=== PATIENT | female | born 1995 | race Caucasian/White ===

== ENCOUNTER 2019-04-25 01:47 | Emergency (ER) | payer OTHER, SELFPAY ==
[2019-04-25 02:49] LABS: Barbiturates NEGATIVE (NEGATIVE); Benzodiazepines NEGATIVE (NEGATIVE); Cocaine NEGATIVE (NEGATIVE); METHAMPHETAM NEGATIVE (NEGATIVE); Methadone NEGATIVE (NEGATIVE); Opiates NEGATIVE (NEGATIVE); Phencyclidine NEGATIVE (NEGATIVE); THC Cannibis NEGATIVE (NEGATIVE)
[2019-04-25 02:59] LABS: Absolute Lymphocytes (CBC) 3.2 K/uL (0.7-4.9); Hematocrit 40.7 % (36.0-45.0); Lymphocytes % 30.6 % (15.3-44.8); MPV 8.9 fL (7.6-11.3); RBC Red Blood Cell Count 4.47 M/uL (3.86-4.86)
[2019-04-25 03:05] LABS: Protime INR 0.98
[2019-04-25 03:21] LABS: ALT/SGPT 26 U/L (12-78); AST/SGOT 18 U/L (15-37); Alkaline Phosphatase 95 U/L (45-117); BUN Blood Urea Nitrogen 9 mg/dL (7-18); Bicarbonate 23 mmol/L (21-32); Bilirubin Direct 0.1 mg/dL (0-0.2); Bilirubin Total 0.4 mg/dL (0.2-1.0); Glucose Level 91 mg/dL (74-106); Potassium 3.6 mmol/L (3.5-5.1); Protein, Total 8.2 g/dL (6.4-8.2); Sodium Level 137 mmol/L (136-145)
[2019-04-25 03:46] LABS: Urine Blood NEGATIVE (NEG); Urine Glucose NEGATIVE (NEG); Urine Protein NEGATIVE (NEG); Urine Specific Gravity <1.005 (1.005-1.030)
--- NOTE | 2019-04-25 06:55 | EKG ---
Test Date: 2019-04-25 Test Time: 02:24:56 Filler Shredder Helper: KELSIE MEASUREMENT RESULTS: Intervals: Rate: 94 IA: 162 QRSD: 78 QT: 362 QTc: 452 Andes: P: 20 IA: 162 QRS: 45 T: 34 INTERPRETIVE STATEMENTS: Normal sinus rhythm Normal ECG Compared to ECG 1995 21:01:00 First degree AV block no longer present Electronically Signed On 04-25-19 06:54:34 CDT by Vladislav Acosta
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
--- NOTE | 2019-04-25 08:34 | EDPHYS ---
Physician Documentation [facility] Name: Rosa Phoenix Age: 23 yrs Sex: Female : 1995 Arrival Date: 04/25/2019 Time: 01:47 Bed 16 Private MD: ED Physician Gordy Tolbert HPI: 04/24 07:27 This 23 yrs old Female presents to ER via Ambulatory with complaints of rn Suicidal Ideation. 07:27 The patient presents to the emergency department with suicide ideation, and the patient rn has a plan. Onset: The symptoms/episode began/occurred at an unknown time. Severity of symptoms: At their worst the symptoms were moderate in the emergency department the symptoms are unchanged. The patient has experienced similar episodes in the past. Reports suicidal ideation, unclear onset, worse lately, alcohol helps, reports plan either to take ibuprofen/cut or shoot herself. Hospitalized before for suicidal ideation. Denies attempt last night. . SPECIAL NEEDS NANNY: 02:05 LMP 04/2019 bb Historical: - Allergies: 02:05 No Known Allergies; bb - Home Meds: 02:05 None [Active]; bb - PMHx: 02:05 psych problems; bb - PSHx: 02:05 None; bb - Immunization history:: Adult Immunizations up to date. - Social history:: Smoking status: Reported history of juuling and/or vaping. Patient uses alcohol, patient/guardian reports chronic longstanding heavy alcohol consumption. Patient/guardian denies using street drugs. - Family history:: not pertinent. - Hospitalizations: : No recent hospitalization is reported. ROS: 07:27 Constitutional: Negative for fever, chills, and weight loss, Eyes: Negative for injury, rn pain, redness, and discharge, Neck: Negative for injury, pain, and swelling, Cardiovascular: Negative for chest pain, palpitations, and edema, Respiratory: Negative for shortness of breath, cough, wheezing, and pleuritic chest pain, Abdomen/GI: Negative for abdominal pain, nausea, vomiting, diarrhea, and constipation, MS/Extremity: Negative for injury and deformity, Skin: Negative for injury, rash, and discoloration, Neuro: Negative for headache, weakness, numbness, tingling, and seizure. Exam: 07:27 Constitutional: This is a well developed, well nourished patient who is awake, alert, rn and in no acute distress. Head/Face: Normocephalic, atraumatic. Eyes: Pupils equal round and reactive to light, extra-ocular motions intact. Lids and lashes normal. Conjunctiva and sclera are non-icteric and not injected. Cornea within normal limits. Periorbital areas with no swelling, redness, or edema. ENT: MMM Cardiovascular: Regular rate and rhythm. No pulse deficits. Respiratory: No increased work of breathing, no retractions or nasal flaring. Abdomen/GI: Soft, non-tender MS/ Extremity: Pulses equal, no cyanosis. Neurovascular intact. Full, normal range of motion. Equal circumference. Neuro: Awake and alert, GCS 15, oriented to person, place, time, and situation. Cranial nerves II-XII grossly intact. Motor strength 5/5 in all extremities. Sensory grossly intact. Cerebellar exam normal. Vital Signs: 02:01 BP 117 / 80; Pulse 100; Resp 16 S; Temp 97.5(TE); Pulse Ox 99% on R/A; Weight 90.72 kg bb (R); Height 5 ft. 2 in. (157.48 cm) (R); Pain 0/10; 14:00 BP 119 / 81; Pulse 101; Resp 16; Pulse Ox 100% ; ms 21:53 BP 121 / 78; Pulse 83; Resp 16; Temp 98.4(O); Pulse Ox 99% on R/A; mt 02:01 Body Mass Index 36.58 (90.72 kg, 157.48 cm) bb MDM: 02:06 Patient medically screened. tw4 08:31 Differential diagnosis: depression, suicidal ideation. Data reviewed: vital signs, rn nurses notes, lab test result(s), EKG, and as a result, I will admit patient. Counseling: I had a detailed discussion with the patient and/or guardian regarding: the historical points, exam findings, and any diagnostic results supporting the discharge/admit diagnosis, lab results, the need to transfer to another facility, [facility] does not immediately have the required specialist. ED course: Pt still endorsing suicidal ideations, now sober, normal vitals and medically cleared, has more than one plan, initiating transfer to psychiatric facility. . 18:08 ED course: Pt now reports feels better, denies current suicidal ideation, given this is rn change from previous report, decision made to call out [facility] mental health again for reeval. . 04/24 02:04 Order name: Acetaminophen; Complete Time: 06:34 [facility] 04/24 06:34 Interpretation: Within normal limits: ACETA < 2.0. 04/24 02:04 Order name: Basic Metabolic Panel; Complete Time: 06:34 04/24 06:35 Interpretation: Within normal limits. 04/24 02:04 Order name: CBC with Diff; Complete Time: 06:34 04/24 06:35 Interpretation: Within normal limits. 04/24 02:04 Order name: ETOH Level; Complete Time: 06:34 [facility] 04/24 06:34 Interpretation: Abnormal: ETOH 162. 04/24 02:04 Order name: Hepatic Function; Complete Time: 06:34 [facility] 04/24 06:34 Interpretation: Normal except: GLOB 4.2; A/G 1.0. 04/24 02:04 Order name: PT-INR; Complete Time: 06:34 04/24 06:35 Interpretation: Within normal limits: PT 11.6. 04/24 02:04 Order name: Ptt, Activated; Complete Time: 06:34 04/24 06:35 Interpretation: Within normal limits: PTT 28.5. 04/24 02:04 Order name: Salicylate; Complete Time: 06:34 04/24 06:35 Interpretation: Within normal limits: BISHOP < 1.7. 04/24 02:04 Order name: Urine Drug Screen; Complete Time: 06:34 04/24 06:35 Interpretation: Within normal limits. 04/24 02:25 Order name: Urine Dipstick--Ancillary (enter results); Complete Time: 06:34 04/24 02:25 Order name: Test, Serum; Complete Time: 06:34 04/24 06:35 Interpretation: Within normal limits. 04/24 05:26 Order name: ETOH Level; Complete Time: 06:34 04/24 06:35 Interpretation: Abnormal: ETOH 106. 04/24 02:04 Order name: EKG; Complete Time: 02:06 04/24 02:04 Order name: EKG - Nurse/Tech; Complete Time: 02:32 tw4 04/24 02:04 Order name: IV Saline Lock; Complete Time: 07:14 tw4 04/24 02:04 Order name: Labs collected and sent; Complete Time: 07:14 tw4 04/24 02:04 Order name: Urine Dipstick-Ancillary (obtain specimen); Complete Time: 02:32 tw4 04/24 07:39 Order name: Diet Finger Food; Complete Time: 07:41 bd 04/24 11:54 Order name: Diet Finger Food; Complete Time: 11:54 em1 04/24 15:38 Order name: Diet Finger Food; Complete Time: 15:38 bd 04/24 18:35 Order name: Diet Finger Food; Complete Time: 18:35 ms EC:35 Rate is 94 beats/min. Rhythm is regular. QRS [place] is Normal. [place] interval is normal. QRS tw4 interval is normal. QT interval is normal. No Q waves. T waves are Normal. No ST changes noted. Clinical impression: Normal ECG. Interpreted by me. Reviewed by me. Administered Medications: 11:24 Drug: Valium 2 mg Route: PO; em 12:30 Follow up: Response: No adverse reaction; Marked relief of symptoms em 11:30 Drug: Nicoderm CQ 21 mg/24 hr 21 mg {Note: applied to left upper arm.} Route: em Transdermal; Site: affected area; 12:30 Follow up: Response: No adverse reaction em Disposition: 04/25/19 22:21 Discharged to Home. Impression: Adjustment disorder with depressed mood. - Condition is Stable. - Discharge Instructions: Adjustment Disorder, Adult, Helping Someone Who is Suicidal, Major Depressive Disorder. - Medication Reconciliation Form, Thank You Letter, Antibiotic Education, Prescription Opioid Use form. - Follow up: Private Physician; When: Upon discharge from the Emergency Department; Reason: Recheck today's complaints, Continuance of care, Re-evaluation by your physician. - Problem is new. - Symptoms have improved. Signatures: Dispatcher [employer] Drake James RN RN em Ballard, Brenda, RN RN bb Nieto, Roman, MD MD rn Habalo, Winsy wh Wadley, Terrence, MD MD tw4 Corrections: (The following items were deleted from the chart) 07:33 07:27 Constitutional: This is a well developed, well nourished patient who is awake, rn alert, and in no acute distress. Head/Face: Normocephalic, atraumatic. Eyes: Pupils equal round and reactive to light, extra-ocular motions intact. Lids and lashes normal. Conjunctiva and sclera are non-icteric and not injected. Cornea within normal limits. Periorbital areas with no swelling, redness, or edema. ENT: MMM Cardiovascular: Regular rate and rhythm. No pulse deficits. Respiratory: No increased work of breathing, no retractions or nasal flaring. Abdomen/GI: Soft, non-tender MS/ Extremity: Pulses equal, no cyanosis. Neurovascular intact. Full, normal range of motion. Equal circumference. Neuro: Awake and alert, GCS 15, oriented to person, place, time, and situation. Cranial nerves II-XII grossly intact. Motor strength 5/5 in all extremities. Sensory grossly intact. Cerebellar exam normal. Normal gait. rn 22:18 08:32 04/25/2019 08:32 Transfer ordered to [facility]. Diagnosis is Suicidal tw4 ideations. Reason for transfer: Higher level of care. Accepting physician is . Condition is Stable. Problem is an ongoing problem. Symptoms are unchanged. rn 22:32 22:21 04/25/2019 22:21 Discharged to Home. Impression: Adjustment disorder with wh depressed mood. Condition is Stable. Forms are Medication Reconciliation Form, Thank You Letter, Antibiotic Education, Prescription Opioid Use. Follow up: Private Physician; When: Upon discharge from the Emergency Department; Reason: Recheck today's complaints, Continuance of care, Re-evaluation by your physician. Problem is new. Symptoms have improved. tw4
[2019-04-25] MEDS ORDERED: DIAZEPAM 2 MG TABLET ONE (11:20)
[2019-04-25] MEDS ORDERED: NICOTINE 21 MG/PAT TD ONE (11:31)
[2019-04-25 22:41] VITALS: BP 121/78; TEMP 98.4; O2SAT 99
== END 2019-04-25 22:32 | disposition home or self-care (01) ==
LOC: ER 01:47
DX: F43.21 Adjustment disorder with depressed mood (principal)
CPT/HCPCS: 36415; 80048; 80076; 80307; 80320; 80329; 81003; 84703; 85025; 85610; 85730; 93005; 99285

== ENCOUNTER 2022-03-19 23:35 | Emergency (ER) | payer SELFPAY ==
--- OUTSIDE RECORDS SUMMARY | 2022-03-19 23:38 | XMS REPORT | Continuity of Care Document ---
:1995 Author Organization [facility] t Address [address] [place] [address] Dr. Ayala [address] [place] [id number] Care Team Providers Name Role Phone Unavailable Unavailable Unavailable Problems This patient has no known problems. Allergies, Adverse Reactions, Alerts This patient has no known allergies or adverse reactions. Medications This patient has no known medications. Procedures This patient has no known procedures. Results This patient has no known results.
[2022-03-20] MEDS ORDERED: KETOROLAC 30 MG/ML INJ ONE (00:03)
[2022-03-20] MEDS ORDERED: NA CHLORIDE 0.9% 1,000 ML ONE (00:03)
[2022-03-20 00:22] LABS: Urine Blood Trace-intact (Negative); Urine Glucose Negative (Negative); Urine Protein Negative (Negative); Urine Specific Gravity <=1.005 (1.005-1.030)
[2022-03-20 00:31] LABS: Urine Specific Gravity/Preg 1.005 (1.005-1.030)
[2022-03-20 00:36] LABS: Absolute Lymphocytes (CBC) 2.5 K/uL (0.7-4.9); Lymphocytes % 24.8 % (15.3-44.8); MCV 79.7 fL (80-100); MPV 8.7 fL (7.6-11.3); RBC Red Blood Cell Count 4.39 M/uL (3.86-4.86)
[2022-03-20 00:49] LABS: Albumin 3.7 g/dL (3.4-5.0); Bilirubin Total 0.3 mg/dL (0.2-1.0); Potassium 3.9 mmol/L (3.5-5.1); Protein, Total 7.8 g/dL (6.4-8.2)
--- NOTE | 2022-03-20 01:23 | ER ---
Nurse's Notes [facility] Name: Rosa Phoenix Age: 26 yrs Sex: Female : 1995 Arrival Date: 03/19/2022 Time: 23:38 Bed 18 Private MD: Diagnosis: Lower abdominal pain, unspecified Presentation: 03/19 23:44 Chief complaint: Patient states: "I have pain in my right lower side. It started last tw5 week, it was in my right side and then it moved my back. It slowly went away , but today it came in the front.". Ebola Screen: Patient negative for fever greater than or equal to 101.5 degrees Fahrenheit, and additional compatible Ebola Virus Disease symptoms Patient denies exposure to infectious person. Patient denies travel to an Ebola-affected area in the 21 days before illness onset. Risk Assessment: Do you want to hurt yourself or someone else? Patient reports no desire to harm self or others. Onset of symptoms is unknown. 23:44 Method Of Arrival: Ambulatory tw5 23:44 Acuity: MOOKIE 3 tw5 23:46 Coronavirus screen: Vaccine status: Patient reports receiving the 2nd dose of the covid tw5 vaccine. [employer]. Initial Sepsis Screen: Does the patient meet any 2 criteria? HR > 90 bpm. Does the patient have a suspected source of infection? Yes: Acute abdominal pain. Triage Assessment: 23:49 General: Appears uncomfortable, Behavior is calm, cooperative, appropriate for age. tw5 Pain: Complains of pain in right lower quadrant Pain currently is 4 out of 10 on a pain scale. DIFFERENTIAL TESTER: 23:44 LMP N/A - Irregular menses tw5 Historical: - Allergies: 23:49 No Known Allergies; tw5 - Home Meds: 23:49 None [Active]; tw5 - PMHx: 23:49 Depressive disorder; Panic attack; tw5 - PSHx: 23:49 None; tw - Immunization history:: Flu vaccine is not up to date. - Social history:: Smoking status: Patient/guardian denies using tobacco, Stopped _ months ago 6. Screenin/09 00:11 [facility] ED Fall Risk Assessment (Adult) History of falling in the last 3 months, aa9 including since admission No falls in past 3 months (0 pts) Confusion or Disorientation No (0 pts) Intoxicated or Sedated No (0 pts) Impaired Gait No (0 pts) Mobility Assist Device Used No (0 pt) Altered Elimination No (0 pt) Score/Fall Risk Level 0 - 2 = Low Risk Oriented to surroundings, Maintained a safe environment. Abuse screen: Denies threats or abuse. Denies injuries from another. Nutritional screening: No deficits noted. Tuberculosis screening: No symptoms or risk factors identified. Assessment: 00:10 General: Appears in no apparent distress. comfortable, obese, Behavior is calm, aa9 cooperative, appropriate for age. Pain: Complains of pain in right lower quadrant Pain currently is 2 out of 10 on a pain scale. Neuro: Level of Consciousness is awake, alert, obeys commands, Oriented to person, place, time, situation. Cardiovascular: Patient's skin is warm and dry. Respiratory: Airway is patent Respiratory effort is even, unlabored. GI: Patient currently denies diarrhea, nausea, vomiting. : Denies burning with urination. Derm: Skin is intact, is healthy with good turgor, Skin is dry. 01:43 Reassessment: Patient appears in no apparent distress at this time. Patient is alert, aa9 oriented x 3, equal unlabored respirations, skin warm/dry/pink. Patient denies pain at this time. Patient states feeling better. Vital Signs: 03/19 23:44 Weight 90.72 kg; Height 5 ft. 2 in. (157.48 cm); Pain 2/10; tw5 23:47 BP 130 / 78; Pulse 97; Resp 18; Temp 98.8; Pulse Ox 100% on R/A; tw5 23:44 Body Mass Index 36.58 (90.72 kg, 157.48 cm) tw5 ED Course: 23:38 Patient arrived in ED. jj6 23:43 [facility] Donal[facility]C [facility] kb 23:43 Marlon Kapadia MD is Attending Physician. kb 23:44 Arm band placed on. tw5 23:46 Triage completed. tw5 23:55 Sis Lopez, MARY is Primary Nurse. aa9 03/20 00:09 CBC with Diff Sent. : CMP Sent. 00:09 Lipase Sent. aa 00:10 Inserted saline lock: 20 gauge in right antecubital area, using aseptic technique. aa9 Blood collected. 00:11 Patient has correct armband on for positive identification. Placed in gown. Call light aa9 in reach. 00:51 CT Abd/Pelvis - IV Contrast Only In Process Unspecified. EDMS 01:42 No provider procedures requiring assistance completed. IV discontinued, intact, aa9 bleeding controlled, No redness/swelling at site. Pressure dressing applied. Administered Medications: 00:10 Drug: NS 0.9% 1000 ml Route: IV; Rate: 1 bolus; Site: right antecubital; aa9 00:10 Not Given (Patient Refused): TORadol - (ketorolac) 15 mg IVP once aa9 Medication: 00:11 VIS not applicable for this client. aa9 Outcome: 01:22 Discharge ordered by . kb 01:42 Discharged to home ambulatory. aa9 01:42 Condition: stable 01:42 Discharge instructions given to patient, Instructed on discharge instructions, follow up and referral plans. Demonstrated understanding of instructions, follow-up care. 01:43 Patient left the ED. aa9 Signatures: Dispatcher [employer] EDMS Michelle Donaldson, POST ADOPTION COORDINATOR-C POST ADOPTION COORDINATOR-Francisca Montoya tw5 Mindy Sigala jj6 Sis Lopez, RN RN aa9
--- NOTE | 2022-03-20 01:23 | EDPHYS ---
Physician Documentation [facility] Name: Rosa Phoenix Age: 26 yrs Sex: Female : 1995 Arrival Date: 03/19/2022 Time: 23:38 Bed 18 Private MD: AURELIANO Physician Marlon Kapadia HPI: 03/20 00:15 This 26 yrs old Female presents to ER via Ambulatory with complaints of RT SIDE ABD kb PAIN. 00:15 The patient presents with abdominal pain right lower quadrant. Onset: The kb symptoms/episode began/occurred last week. The symptoms do not radiate. Associated signs and symptoms: none. The symptoms are described as intermittent. Modifying factors: The symptoms are alleviated by nothing, the symptoms are aggravated by nothing. Severity of pain: At its worst the pain was moderate in the emergency department the pain is unchanged. The patient has not experienced similar symptoms in the past. The patient has not recently seen a physician. Pt reports right lower abd pain that started last week, went away and returned today. Denies other symptoms. States she is concerned about appendicitis. 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 - Social history:: Smoking status: Patient/guardian denies using tobacco, Stopped _ months ago 6. ROS: 03/20 00:14 Constitutional: Negative for fever, chills, and weight loss. kb Abdomen/GI: Positive for abdominal pain, Negative for nausea, vomiting, and diarrhea. All other systems are negative. Exam: 00:14 Constitutional: This is a well developed, well nourished patient who is awake, alert, kb and in no acute distress. Head/Face: Normocephalic, atraumatic. ENT: Moist Mucous membranes Cardiovascular: Regular rate and rhythm with a normal S1 and S2. No gallops, murmurs, or rubs. No pulse deficits. Respiratory: Respirations even and unlabored. No increased work of breathing. Talking in full sentences Skin: Warm, dry with normal turgor. Normal color. MS/ Extremity: Pulses equal, no cyanosis. Neurovascular intact. Full, normal range of motion. Neuro: Awake and alert, GCS 15, oriented to person, place, time, and situation. Moves all extremities. Normal gait. Psych: Awake, alert, with orientation to person, place and time. Behavior, mood, and affect are within normal limits. 00:14 Abdomen/GI: Inspection: abdomen appears normal, Bowel sounds: normal, Palpation: soft, in all quadrants, mild abdominal tenderness, in the right lower quadrant. Vital Signs: 03/19 23:44 Weight 90.72 kg; Height 5 ft. 2 in. (157.48 cm); Pain 2/10; tw5 23:47 BP 130 / 78; Pulse 97; Resp 18; Temp 98.8; Pulse Ox 100% on R/A; tw5 23:44 Body Mass Index 36.58 (90.72 kg, 157.48 cm) tw5 MDM: 23:43 Patient medically screened. kb 03/20 00:14 Data reviewed: vital signs, nurses notes. kb 00:19 Differential diagnosis: appendicitis, non-specific abd pain, Ureterolithiasis, urinary kb tract infection, ovarian cyst. 01:21 Counseling: I had a detailed discussion with the patient and/or guardian regarding: the kb historical points, exam findings, and any diagnostic results supporting the discharge/admit diagnosis, lab results, radiology results, the need for outpatient follow up, a family practitioner, to return to the emergency department if symptoms worsen or persist or if there are any questions or concerns that arise at home. 03/19 23:47 Order name: CBC with Diff; Complete Time: 00:42 kb 03/19 23:47 Order name: CMP; Complete Time: 00:57 kb 03/19 23:47 Order name: Lipase; Complete Time: 00:57 kb 03/20 00:22 Order name: Urine Dipstick-Ancillary; Complete Time: 00:25 EDMS 03/20 00:24 Order name: Urine --Ancillary (enter results); Complete Time: 00:36 ds4 03/20 01:06 Order name: CREATININE WHOLE BLOOD; Complete Time: 01:08 EDMS 03/19 23:47 Order name: CT Abd/Pelvis - IV Contrast Only kb 03/19 23:47 Order name: IV Saline Lock; Complete Time: 00:09 kb 03/19 23:47 Order name: Labs collected and sent; Complete Time: 00:09 kb 03/19 23:47 Order name: Urine Dipstick-Ancillary (obtain specimen); Complete Time: 00:22 kb 03/19 23:47 Order name: Urine Test (obtain specimen); Complete Time: 00:22 kb Administered Medications: 00:10 Drug: NS 0.9% 1000 ml Route: IV; Rate: 1 bolus; Site: right antecubital; aa9 00:10 Not Given (Patient Refused): TORadol - (ketorolac) 15 mg IVP once aa9 Disposition Summary: 03/20/22 01:22 Discharge Ordered Location: Home kb Condition: Stable kb Diagnosis - Lower abdominal pain, unspecified kb Followup: kb - With: Emergency Department - When: As needed - Reason: Worsening of condition Followup: kb - With: Private Physician - When: 2 - 3 days - Reason: Recheck today's complaints, Continuance of care, Re-evaluation by your physician Discharge Instructions: - Discharge Summary Sheet kb - Abdominal Pain, Adult, [id number] kb Forms: - Medication Reconciliation Form kb - Thank You Letter kb - Antibiotic Education kb - Prescription Opioid Use kb Signatures: Dispatcher [employer] Michelle Teague, RHETT-C RHETT-Francisca Montoya tw5 Sis Lopez, RN RN aa9
[2022-03-20 02:10] VITALS: BP 130/78; TEMP 98.8; O2SAT 100
--- NOTE | 2022-03-20 15:38 | RAD REPORT ---
EXAM DESCRIPTION: CT - Abdomen Pelvis W Contrast - 03/20/2022 7:06 am CLINICAL HISTORY: The patient is 26 years old and is Female; ABD PAIN TECHNIQUE: Axial computed tomography images of the abdomen and pelvis with intravenous contrast. S agittal and coronal reformatted images were created and reviewed. This CT exam was performed using one or more of the following dose reduction techniques: automated exposure control, adjustment of t he mA and/or kV according to patient size, and/or use of iterative reconstruction technique. COMPARISON: No relevant prior studies available. FINDINGS: Lung bases: Unremarkable. No mass. No consolidation. ABDOMEN: Liver: Unremarkable. No mass. Gallbladder and bile ducts: Unremarkable. No calcified stones. No ductal dilation. Pancreas: Unremarkable. No mass. No ductal dilation. Spleen: Unremarkable. No splenomegaly. Adrenals: Unremarkable. No mass. Kidneys and ureters: Unremarkable. No solid mass. No hydronephrosis. Stomach and bowel: Unremarkable. No obstruction. No mucosal thickening. PELVIS: Appendix: No findings to suggest acute appendicitis. Bladder: Unremarkable. Reproductive: Unremarkable as visualized. ABDOMEN and PELVIS: Intraperitoneal space: Unremarkable. No free air. No significant fluid collection. Bones/joints: No acute fracture. No dislocation. Soft tissues: Unremarkable. Vasculature: Unremarkable. No abdominal aortic aneurysm. Lymph nodes: Unremarkable. No enlarged lymph nodes. IMPRESSION: No acute finding in the abdomen/pelvis. Electronically signed by: Onesimo Moore MD 03/20/2022 1:18 AM PYTHON ARCHITECT Due to temporary technical issues with the PACS/Fluency reporting system, reports are being signed by the in house radiologists without review as a courtesy to insure prompt reporting. The interpreting radiologist is fully responsible for the content of the report.
== END 2022-03-20 01:43 | disposition home or self-care (01) ==
LOC: ER 23:35
DX: R10.31 Right lower quadrant pain (principal)
CPT/HCPCS: 36415; 74177; 80053; 81003; 81025; 82565; 83690; 85025; 99284; Q9967

== ENCOUNTER 2023-12-07 14:18 | Emergency (ER) | payer SELFPAY ==
--- OUTSIDE RECORDS SUMMARY | 2023-12-07 14:28 | XMS REPORT | Continuity of Care Document ---
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
[2023-12-07 14:57] LABS: Absolute Basophils 0.1 K/uL (0-0.5); Absolute Eosinophils 0.4 K/uL (0-0.5); Absolute Lymphocytes (CBC) 1.9 K/uL (0.7-4.9); Absolute Monocytes 0.6 K/uL (0.1-1.3); Absolute Neutrophil 8.6 K/uL (1.8-8.0); Basophils % 0.9 % (0-1.3); Eosinophils % 3.7 % (0-4.4); Hematocrit 34.6 % (36.0-45.0); Hemoglobin 10.7 g/dL (12.0-15.0); Lymphocytes % 16.3 % (15.3-44.8); MCH 22.8 pg (27.0-35.0); MCV 73.7 fL (80-100); MPV 8.4 fL (7.6-11.3); Monocytes % 5.5 % (3.3-12.3); Neutrophils % 73.6 % (41.7-73.7); Platelets 326 thou/uL (152-406); RBC Red Blood Cell Count 4.69 M/uL (3.86-4.86); Red Cell Distribution Width 19.4 % (12.1-15.2)
[2023-12-07 15:15] LABS: Albumin 3.6 g/dL (3.4-5.0); Albumin/Globulin Ratio 0.8 (1.1-1.8); Bilirubin Total 0.4 mg/dL (0.2-1.0); Globulin 4.3 g/dL (2.3-3.5); Protein, Total 7.9 g/dL (6.4-8.2)
--- NOTE | 2023-12-07 16:49 | RAD REPORT ---
EXAMINATION: US FIRST TRIMESTER TRANSVAGINAL WITH DOPPLER CLINICAL INDICATION: with pelvic pain TECHNIQUE: Real-time obstetrical ultrasonography of the maternal pelvis and first trimester was performed transvaginally. Color and spectral Doppler evaluation of the ovaries was performed. COMPARISON: No prior exam. FINDINGS: The uterus measures 10 x 5 x 5 cm. The endometrial stripe measures 1.6 cm. Gestational sac is not seen. Within the cervical canal is a heterogeneous structure measuring 2.5 cm. Right ovary normal in size and echotexture Left ovary normal in size and echotexture Right and left adnexa unremarkable No significant free fluid IMPRESSION: 2.5 cm heterogeneous structure within the cervical canal. This may represent the remnants of an incom plete . Another consideration is that this is unrelated to the and represents a mass. It is possible that the patient has an early intrauterine in which the gestational sac is n ot seen secondary to the early gestation. This should all be correlated clinically and with serial beta-hCG levels. Follow-up endovaginal sono gram in one week recommended for reevaluation
[2023-12-07 17:27] LABS: Sqamous Epithelial None Seen /HPF (None Seen); Urine Bacteria None Seen /HPF (<20); Urine Culture Reflex Order REFLEXED; Urine Micro Reflex YN NO BILL MICROSCOPIC; Urine RBC >50 /HPF (None Seen)
--- NOTE | 2023-12-07 18:26 | EDPHYS ---
Physician Documentation [facility] Name: Rosa Phoenix Age: 28 yrs Sex: Female : 1995 Arrival Date: 12/07/2023 Time: 14:18 Bed 12 Private MD: ED Physician Magen Iniguez HPI: 12/06 14:40 This 28 yrs old Female presents to ER via Ambulatory with complaints of Abdominal ms3 Cramping. 14:40 28-year-old female past medical history of depression, panic attack, psych problem ms3 presents to the emergency department for lower abdominal cramping that has been ongoing for 2 weeks. Patient states cramping became worse on Thursday and is currently rated 6/10. Patient states she is currently on her cycle and does have irregular cycles. Patient endorses nausea. Patient denies vomiting, diarrhea, constipation, urinary symptoms. 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 - Infectious Disease History:: Denies. - Social history:: Smoking status: Patient/guardian denies using tobacco. ROS: 14:40 Constitutional: Negative for fever, and chills. Cardiovascular: Negative for chest ms3 pain, and palpitations. Respiratory: Negative for shortness of breath, cough, wheezing, and pleuritic chest pain, 14:40 : Negative for injury, bleeding, discharge, and swelling, MS/Extremity: Negative for injury and deformity, 14:40 Abdomen/GI: Positive for abdominal pain, nausea, Negative for vomiting, diarrhea, Exam: 14:40 Constitutional: This is a well developed, well nourished patient who is awake, alert, ms3 and in no acute distress. Chest/axilla: Normal chest wall appearance and motion. Nontender with no deformity. Cardiovascular: Regular rate and rhythm with a normal S1 and S2. No gallops, murmurs, or rubs. Normal PMI, no JVD. No pulse deficits. Respiratory: Lungs have equal breath sounds bilaterally, clear to auscultation and percussion. No rales, rhonchi or wheezes noted. No increased work of breathing, no retractions or nasal flaring. 14:40 Skin: Warm, dry with normal turgor. Normal color with no rashes, no lesions, and no evidence of cellulitis. 14:40 Abdomen/GI: Inspection: obese Bowel sounds: normal, Palpation: mild abdominal tenderness, in the right lower quadrant, Vital Signs: 14:32 BP 132 / 87; Pulse 86; Resp 17; Temp 98.1(O); Pulse Ox 98% on R/A; Weight 104.33 kg; cm10 Height 5 ft. 3 in. ; Pain 6/10; 17:03 BP 116 / 86; Pulse 96; Resp 18; Pulse Ox 100% on R/A; Pain 0/10; tl4 17:50 BP 125 / 74; Pulse 102; Resp 18; Pulse Ox 100% on R/A; Pain 0/10; tl4 18:43 BP 119 / 92; Pulse 103; Resp 19; Temp 97.8(O); Pulse Ox 99% on R/A; tl4 14:32 Body Mass Index 40.74 (104.33 kg, 160.02 cm) cm10 14:32 Pain Scale: Adult cm10 17:03 Pain Scale: Adult tl4 17:50 Pain Scale: Adult tl4 MDM: 14:37 Medical Screening Exam initiated ms3 14:43 Differential diagnosis: appendicitis, diverticulitis, non-specific abd pain, urinary ms3 tract infection. 18:36 Data reviewed: vital signs, nurses notes, lab test result(s), radiologic studies, and ms3 as a result, I will discharge patient. Counseling: I had a detailed discussion with the patient and/or guardian regarding the historical points, exam findings, and any diagnostic results supporting the discharge/admit diagnosis, lab results, radiology results, the need for outpatient follow up, to return to the emergency department if symptoms worsen or persist or if there are any questions or concerns that arise at home. Special discussion: I discussed with the patient/guardian in detail that at this point there is no indication for admission to the hospital. It is understood, however, that if the symptoms persist or worsen the patient needs to return immediately for re-evaluation. ED course: Discussed labs and ultrasound results with the patient and her . Patient to follow-up with gynecology in 2 to 3 days. Patient understands and agrees with plan. All questions were answered. Return precautions discussed include worsening symptoms, or any other concerns. Discussed with patient inability to tell if early versus incomplete at this time as beta-hCG is only 58. On reevaluation patient is alert and orient x 4, no apparent distress, nontoxic-appearing, speaking full sentences, ambulatory in the emergency department. 12/06 14:38 Order name: Test, Serum; Complete Time: 15:19 ms3 12/06 14:39 Order name: CBC with Diff; Complete Time: 15:19 ms3 12/06 14:39 Order name: CMP; Complete Time: 15:19 ms3 12/06 15:50 Order name: Quantitative Hcg; Complete Time: 16:53 ms3 12/06 17:08 Order name: Rh Typing; Complete Time: 18:24 ms3 12/06 17:15 Order name: Urine Microscopic Only; Complete Time: 17:35 EDMS 12/06 17:32 Order name: Urine Culture EDMS 12/06 15:55 Order name: Transvaginal OB; Complete Time: 16:53 EDMS 12/06 14:39 Order name: IV Saline Lock; Complete Time: 14:51 ms3 12/06 14:39 Order name: Labs collected and sent; Complete Time: 14:51 ms3 Administered Medications: No medications were administered Disposition Summary: 12/07/23 18:25 Discharge Ordered Notes: Location: Home ms3 Condition: Stable ms3 Diagnosis - Threatened ms3 - Lower abdominal pain, unspecified ms3 Followup: ms3 - With: Marjorie Reyes MD - When: 2 - 3 days - Reason: Recheck today's complaints Followup: ms3 - With: Private Physician - When: 2 - 3 days - Reason: Recheck today's complaints Discharge Instructions: - Discharge Summary Sheet ms3 - Abdominal Pain, Adult ms3 - Threatened Miscarriage ms3 Forms: - Medication Reconciliation Form ms3 - Antibiotic Education ms3 - Prescription Opioid Use ms3 - Patient Portal Instructions ms3 - Leadership Thank You Letter ms3 Signatures: Dispatcher [employer] EDMagen Pierce DO DO ms3 Jeanie Santiago, RN RN cm10 Corrections: (The following items were deleted from the chart) 15:21 14:40 Abdomen Pelvis W Con+CT.RAD.BRZ ordered. EDMS EDMS 15:50 15:50 OB Limited+US.RAD.BRZ ordered. EDMS EDMS 17:15 14:40 Urinalysis+U.LAB.BRZ ordered. EDMS EDMS
--- NOTE | 2023-12-07 18:26 | ER ---
Nurse's Notes [facility] Name: Rosa Phoenix Age: 28 yrs Sex: Female : 1995 Arrival Date: 12/07/2023 Time: 14:18 Bed 12 Private MD: Diagnosis: Threatened ;Lower abdominal pain, unspecified Presentation: 12/06 14:32 Chief complaint: Patient states: Lower abdominal pain that radiates to back onset early cm10 this morning. Pt reports nausea. Pt reports urinary frequency. Pt describes the pain as cramping. Pt states that she is on her period but these cramps are worse. Coronavirus screen: Client denies travel out of the [place] in the last 14 days. Ebola Screen: Patient denies travel to an Ebola-affected area in the 21 days before illness onset. No symptoms or risks identified at this time. Initial Sepsis Screen: Does the patient meet any 2 criteria? No. Patient's initial sepsis screen is negative. Does the patient have a suspected source of infection? No. Patient's initial sepsis screen is negative. Risk Assessment: Do you want to hurt yourself or someone else? Patient reports no desire to harm self or others. Onset of symptoms was December 07, 2023. 14:32 Method Of Arrival: Ambulatory cm10 14:32 Acuity: MOOKIE 3 cm10 Triage Assessment: 14:34 General: Appears in no apparent distress. uncomfortable, Behavior is calm, cooperative. cm10 Pain: Complains of pain in suprapubic area, right lower quadrant and left lower quadrant Pain radiates to back Pain currently is 6 out of 10 on a pain scale. Quality of pain is described as crampy. Neuro: No deficits noted. Level of Consciousness is awake, alert, obeys commands, Oriented to person, place, time, situation, Appropriate for age. Respiratory: No deficits noted. Airway is patent Respiratory effort is even, unlabored, Respiratory pattern is regular, symmetrical. GI: Reports lower abdominal pain, cramping, nausea. FAMILY REUNIFICATION SPECIALIST: 14:35 LMP 12/02/2023, unknown cm10 Historical: - Allergies: 14:34 No Known Allergies; cm10 - PMHx: 14:34 depressive disorder; panic attack; PSYCH PROBLEMS; cm10 - PSHx: 14:34 None; cm10 - Immunization history:: Adult Immunizations up to date. - Infectious Disease History:: Denies. - Social history:: Smoking status: Patient/guardian denies using tobacco. Screenin:04 [facility] ED Fall Risk Assessment (Adult) History of falling in the last 3 months, tl4 including since admission No falls in past 3 months (0 pts) Confusion or Disorientation No (0 pts) Intoxicated or Sedated No (0 pts) Impaired Gait No (0 pts) Mobility Assist Device Used No (0 pt) Altered Elimination No (0 pt) Score/Fall Risk Level 0 - 2 = Low Risk Oriented to surroundings, Maintained a safe environment, Educated pt \T\ family on fall prevention, incl call for assistance when getting out of bed, Assessed \T\ reinforced patient's understanding of fall precautions. Abuse screen: Denies threats or abuse. Denies injuries from another. Nutritional screening: No deficits noted. Tuberculosis screening: No symptoms or risk factors identified. Assessment: 17:01 General: Appears in no apparent distress. Behavior is calm, cooperative. Pain: Denies tl4 pain. Neuro: Level of Consciousness is awake, alert, obeys commands, Oriented to person, place, time, situation, Moves all extremities. Full function Gait is steady. Cardiovascular: Capillary refill < 3 seconds Patient's skin is warm and dry. Respiratory: Airway is patent Respiratory effort is even, unlabored, Respiratory pattern is regular, symmetrical, Breath sounds are clear bilaterally. GI: Bowel sounds present X 4 quads. Abd is soft and non tender. : Reports vaginal bleeding that is bright red, with clots. EENT: No signs and/or symptoms were reported regarding the EENT system. Derm: No signs and/or symptoms reported regarding the dermatologic system. Musculoskeletal: No signs and/or symptoms reported regarding the musculoskeletal system. Vital Signs: 14:32 BP 132 / 87; Pulse 86; Resp 17; Temp 98.1(O); Pulse Ox 98% on R/A; Weight 104.33 kg; cm10 Height 5 ft. 3 in. ; Pain 6/10; 17:03 BP 116 / 86; Pulse 96; Resp 18; Pulse Ox 100% on R/A; Pain 0/10; tl4 17:50 BP 125 / 74; Pulse 102; Resp 18; Pulse Ox 100% on R/A; Pain 0/10; tl4 18:43 BP 119 / 92; Pulse 103; Resp 19; Temp 97.8(O); Pulse Ox 99% on R/A; tl4 14:32 Body Mass Index 40.74 (104.33 kg, 160.02 cm) cm10 14:32 Pain Scale: Adult cm10 17:03 Pain Scale: Adult tl4 17:50 Pain Scale: Adult tl4 ED Course: 14:23 Patient arrived in ED. mr 14:28 Magen Iniguez DO is Attending Physician. ms3 14:34 Triage completed. cm10 14:35 Arm band placed on right wrist. Patient placed in waiting room. cm10 14:51 CBC with Diff Sent. cm10 14:51 CMP Sent. cm10 14:51 Test, Serum Sent. cm10 14:51 Initial lab(s) drawn, by in, sent to lab. Inserted saline lock: 20 gauge in right cm10 antecubital area, using aseptic technique. Blood collected. Flushed with 10 mL NS Missed attempt(s): 20 gauge in left antecubital area. Bleeding controlled, band aid applied, catheter tip intact. 16:12 Sami Jimenez, RN is Primary Nurse. tl4 16:26 Transvaginal OB In Process Unspecified. EDMS 17:05 Patient has correct armband on for positive identification. Bed in low position. Call tl4 light in reach. Side rails up X 1. Adult w/ patient. Provided Education on: ed process, call padilla. Client placed on continuous cardiac and pulse oximetry monitoring. NIBP monitoring applied. Door closed. Noise minimized. Lights dimmed. Moved to private room. 17:05 No provider procedures requiring assistance completed. tl4 17:05 Urine collected: clean catch specimen. tl4 17:24 Urine Microscopic Only Sent. tl4 17:36 Rh Typing Sent. tl4 17:49 Rh Typing Sent. tl4 18:25 Marjorie Reyes MD is Referral Physician. ms3 18:25 Referral Physician role handed off by Marjorie Reyes MD ms3 18:33 IV discontinued, intact, bleeding controlled, No redness/swelling at site. Pressure tl4 dressing applied. Administered Medications: No medications were administered Medication: 17:03 VIS not applicable for this client. tl4 Outcome: 18:25 Discharge ordered by . ms3 18:44 Discharged to home ambulatory, with family, tl4 18:44 Condition: stable 18:44 Discharge instructions given to patient, Instructed on discharge instructions, follow up and referral plans. Demonstrated understanding of instructions, follow-up care, 18:44 Patient left the ED. tl4 Signatures: Dispatcher [employer] EDMS HawkinsArin gallagher, Reg Reg mr Magen Iniguez, DO DO ms3 Jeanie Santiago, RN RN cm10 Sami Jimenez RN RN tl4 Corrections: (The following items were deleted from the chart) 17:15 17:01 Urinalysis+U.LAB.BRZ drawn and sent. tl4 EDNJ
[2023-12-07 19:23] VITALS: BP 119/92; TEMP 97.8; O2SAT 99
== END 2023-12-07 18:44 | disposition home or self-care (01) ==
LOC: ER 14:18
DX: O20.0 Threatened abortion (principal)
CPT/HCPCS: 36415; 76817; 80053; 81015; 84702; 84703; 85025; 86901; 87086; 87088; 99284